=== PATIENT | female | born 1995 | race Caucasian/White ===

== ENCOUNTER → 2017-10-11 | Outpatient (CLI) | payer OTHER, MEDICARE ==
--- NOTE | 2017-10-11 15:34 | RAD ---
Coccygeal region ultrasound, 10/11/2017: HISTORY: Pilonidal cyst The area of clinical concern in the gluteal crease at the midline just superior to the level of the anus was carefully scanned. There is a triangular-shaped nodule which appears to involve the skin and subcutaneous soft tissues. It measures 1.6 x 1.1 x 1.4 cm. There are heterogeneous medium level internal echoes with internal color flow within its posterior aspect and along its periphery. This process has a solid appearance suggesting an inflammatory mass or phlegmon. No discrete drainable abscess is seen. Electronically signed by: Eldon Sorenson MD (10/11/2017 3:31 PM) [facility]
== END | disposition home or self-care (01) ==
LOC: US 11:30
PROVIDERS: ATTEND Family Medicine
DX: L05.91 Pilonidal cyst without abscess (principal)
CPT/HCPCS: 76881